=== PATIENT | female | born 1955 ===

== ENCOUNTER → 2016-12-01 | Outpatient (CLI) | payer MEDICARE ==
--- NOTE | 2016-12-01 13:05 | RAD ---
Right upper arm ultrasound, 12/01/2016: History: Painful lump The area of clinical concern in the right upper arm was carefully scanned. There is a smooth, oval-shaped structure in the subcutaneous soft tissues which demonstrates echogenicity similar to the adjacent subcutaneous fat. It measures 2.7 x 2.3 x 0.6 cm. A lipoma is suspected. No other abnormality is seen in this region. IMPRESSION: Probable subcutaneous lipoma. Clinical surveillance is suggested.
== END | disposition home or self-care (01) ==
LOC: US 10:13
PROVIDERS: ATTEND Family Medicine
DX: R22.31 Localized swelling, mass and lump, right upper limb (principal)
CPT/HCPCS: 76881

== ENCOUNTER → 2016-12-07 | Outpatient (CLI) | payer MEDICARE ==
[~2016-12-07] MED LIST: IOHEXOL 240 MG/ML 50ML VIAL. ONE
--- NOTE | 2016-12-07 11:33 | RAD ---
EXAM: CT abdomen/pelvis without contrast. HISTORY: Weight loss, hernia. TECHNIQUE: Computed tomography of the abdomen and pelvis was performed without intravenous contrast. COMPARISON: None. FINDINGS: Lung windows through the visualized portions of the bases reveal mild atelectasis. Bone windows reveal no suspicious lesions. There is a very large left lower quadrant hernia that contains the majority of the small bowel and colon. The cecum and ileocecal valve are included. It could not be fully included in this field of view given size, but no acute abnormality or obstruction is seen. Hypoattenuation of the hepatic parenchyma indicates at least mild diffuse hepatic steatosis. The liver is at least mildly enlarged. The gallbladder is surgically absent. The common duct is moderately dilated at 14 mm. There is no clear cause for distal obstruction. The pancreas and spleen are unremarkable without contrast. A hypoattenuating 1.5 cm focus at the left renal lower pole is slightly above fluid attenuation. It most likely represents a mildly complicated cyst. There are no pathologically enlarged lymph nodes. IMPRESSION: 1. Very large left lower quadrant hernia containing the majority of the small bowel and colon. No evidence of obstruction. 2. At least mild diffuse hepatic steatosis and hepatomegaly. 3. A 1.5 cm hypoattenuating focus at the left lower pole is most likely a mildly complicated cyst. Sonography could differentiate cystic from solid lesions if feasible given body habitus. Otherwise, CT follow-up could be performed in 6-12 months. 4. Moderate extrahepatic biliary dilatation status post cholecystectomy. Correlate for cholestasis to assess significance. *One or more of the following individualized dose reduction techniques were utilized for this examination: 1. Automated exposure control. 2. Adjustment of the mA and/or kV according to patient size. 3. Use of iterative reconstruction technique.
== END | disposition home or self-care (01) ==
LOC: CT 09:23
PROVIDERS: ATTEND Family Medicine
DX: K76.0 Fatty (change of) liver, not elsewhere classified (principal); Z90.49 Acquired absence of other specified parts of digestive tract; K45.8 Other specified abdominal hernia without obstruction or gangrene; R63.4 Abnormal weight loss
CPT/HCPCS: 74176; Q9966